=== PATIENT | female | born 1970 | race African-American/Black ===

== ENCOUNTER 2020-12-28 00:19 | Emergency (ER) | payer SELFPAY ==
[~2020-12-28] VITALS: Ht 167.6 cm; Wt 74.0 kg
[2020-12-28] MEDS ORDERED: ONDANSETRON 4MG ODT PO ONE (03:45)
[2020-12-28 04:00] VITALS: BP 126/66
== END 2020-12-28 04:21 | disposition home or self-care (01) ==
LOC: ER 00:19
DX: F12.129 Cannabis abuse with intoxication, unspecified (principal)
CPT/HCPCS: 93005; 99283; Q0162